=== PATIENT | female | born 1980 | race African-American/Black ===

== ENCOUNTER 2016-09-08 11:19 | Emergency (ER) | payer MEDICARE, OTHER | END 2016-09-08 11:54 | disposition home or self-care (01) | LOC: NAV ERS 11:19 | DX: S30.1XXA Contusion of abdominal wall, initial encounter (principal); Y04.0XXA Assault by unarmed brawl or fight, initial encounter | CPT/HCPCS: 99283 ==

== ENCOUNTER 2017-08-18 20:31 | Emergency (ER) | payer MEDICARE, OTHER | END 2017-08-18 21:05 | disposition home or self-care (01) | LOC: NAV ERS 20:31 | DX: O09.512 Supervision of elderly primigravida, second trimester (principal); O99.89 Other specified diseases and conditions complicating pregnancy, childbirth and the puerperium; H65.01 Acute serous otitis media, right ear; O99.612 Diseases of the digestive system complicating pregnancy, second trimester; K02.9 Dental caries, unspecified; Z3A.14 14 weeks gestation of pregnancy | CPT/HCPCS: 99282 ==

== ENCOUNTER 2025-06-25 19:14 | Emergency (ER) | payer OTHER ==
[2025-06-25] MEDS ORDERED: cloNIDine 0.1 MG TAB ONE (19:46)
[2025-06-25] MEDS ORDERED: Ketorolac Tromethamine 30 MG (1 mL) VIAL ONE (19:46)
[2025-06-25 20:00] LABS: Hematocrit 36.4 % (36.0-47.0); Hemoglobin 11.6 g/dL (12.0-16.0); Mean Corpuscular Hemoglobin 24.4 pg (27.0-31.0); Mean Corpuscular Volume 76.8 fl (78.0-98.0); Platelet Count 245 10x3/uL (130-400); Red Blood Cell (RBC) Count 4.74 mill/uL (4.20-5.40); White Blood Cell (WBC) Count 4.8 10x3/uL (4.8-10.8)
[2025-06-25 20:01] LABS: Manual Diff?? YES
[2025-06-25 20:17] LABS: ALT (SGPT) 10 U/L (Less than 34); AST (SGOT) 16 U/L (11-34); Albumin 3.3 g/dL (3.1-4.5); Alkaline Phosphatase 69 U/L (40-110); Anion Gap 15 mmol/L (10-20); BUN (Urea Nitrogen) 12 mg/dL (7.0-18.7); Bilirubin, Total 0.2 mg/dL (0.3-1.2); Calc. Creatinine Clearance 0 mL/min (70-130); Calcium 8.7 mg/dL (7.8-10.44); Carbon Dioxide 23 mmol/L (22-29); Chloride 105 mmol/L (98-107); Globulin 3.5 g/dL (2.4-3.5); Glucose 92 mg/dL (70-105); MDiff Complete? YES; Platelet Adequacy Comment Platelets Normal; Potassium 3.6 mmol/L (3.5-5.1); Sodium 139 mmol/L (136-145); Target Cells SLIGHT = 2-5 cells (100X) (0-1/hpf)
[2025-06-25 20:19] LABS: Troponin I Less than 0.010 ng/mL (< 0.028)
== END 2025-06-25 20:49 | disposition home or self-care (01) ==
LOC: NAV ERS 19:14
DX: R07.89 Other chest pain (principal); E66.9 Obesity, unspecified; R03.0 Elevated blood-pressure reading, without diagnosis of hypertension; M25.611 Stiffness of right shoulder, not elsewhere classified; M25.612 Stiffness of left shoulder, not elsewhere classified
CPT/HCPCS: 71046; 80053; 84484; 85025; 93005; 96374; J1885; J7030